=== PATIENT | female | born 1990 | race Caucasian/White ===

== ENCOUNTER 2017-01-03 07:04 | Emergency (ER) | payer BC ==
[~2017-01-03] VITALS: Ht 170.2 cm; Wt 68.2 kg
[~2017-01-03 07:04] MED LIST: CEPHALEXIN500 M1 PO; FLEXERIL 1010 MG/TAB PO; MOTRIN 600600 MG/TAB PO; NO HOME MEDICATIONS; PERCOCET 325 MG1 TA2 PO; PREDNISONE20 MG PO
[2017-01-03 07:07] VITALS: BP 160/87; PULSE 76; TEMP 97.8
[2017-01-03] MEDS ORDERED: ATARAX 25MG25 MG/TAB PO (07:11)
[2017-01-03] MEDS ORDERED: LEXAPRO 10MG10 MG PO (07:11)
[2017-01-03] MEDS ORDERED: AMOXICILLIN 8751 TAB PO (07:34)
== END 2017-01-03 07:59 | disposition home or self-care (01) ==
LOC: COL.ER 07:04
DX: J32.9 Chronic sinusitis, unspecified (principal); H92.01 Otalgia, right ear